=== PATIENT | female | born 1960 | race Caucasian/White ===

== ENCOUNTER → 2019-12-30 | Outpatient (CLI) | payer OTHER ==
[~2019-12-30] MED LIST: ALPRAZOLAM1 MG PO; AMLODIPINE BESYL5 MG PO; BENTYL10 MG PO; COLACE100 MG PO; COLESTIPOL HCL1 GM PO; FLUOXETINE HCL20 M1 PO; LISINOPRIL2.5 MG PO; LISINOPRIL40 MG PO; METOPROLOL SUCC25 MG PO; PANTOPRAZOLE SO40 MG PO; PROBIOTIC & AC1 EACH; VITAMIN D; ZOLPIDEM TARTRA10 MG PO
--- NOTE | 2019-12-30 14:12 | Diagnostic Imaging Report ---
CT of the abdomen and pelvis with contrast TECHNIQUE: CT of the abdomen and pelvis WITH intravenous contrast and WITHOUT oral contrast. Dose modulation, iterative reconstruction, and/or weight-based adjustment of the mA/kV was utilized to reduce the radiation dose to as low as reasonably achievable. IV CONTRAST: 100 mL of Isovue-370 ORAL CONTRAST: None RADIATION DOSE: Total DLP: 424 mGy*cm COMPLICATIONS: None INDICATION: ^[id number] ^1300 ^GEN ABD PAIN. COMPARISON: 12/30/2014. FINDINGS: LOWER THORAX: Trace dependent atelectasis is noted at the left lung base. Partially visualized breast implants are noted. HEPATOBILIARY: No focal hepatic lesions. Gallbladder is unremarkable. No biliary ductal dilatation. SPLEEN: No splenomegaly. PANCREAS: No focal masses or ductal dilatation. ADRENALS: No adrenal nodules. KIDNEYS/URETERS: No hydronephrosis, stones, or masses. PELVIC ORGANS/BLADDER: Unremarkable. PERITONEUM/RETROPERITONEUM: No free air or fluid. LYMPH NODES: No lymphadenopathy. VESSELS: Negative for abdominal aortic aneurysm. Moderate multifocal infrarenal calcified atherosclerotic changes are noted. GI TRACT: Limited due to lack of oral contrast. Stomach is mildly distended. Small hiatal hernia is noted. There is mild hyperenhancement and wall thickening of the terminal ileum and cecum and proximal colon with intraluminal fluid. No adjacent fluid collection or significant inflammatory changes are identified. Normal appendix is noted. Negative for bowel obstruction. Descending colon is decompressed limiting evaluation. BONES AND SOFT TISSUES: Mild to moderate multilevel degenerative changes of the spine are noted. No suspicious lytic or blastic lesions are identified. Soft tissues are unremarkable.. IMPRESSION: Negative for bowel obstruction. There is mild wall thickening, hyperenhancement and intraluminal fluid at the level of the terminal ileum and cecum suggestive of infectious or inflammatory change. No drainable adjacent fluid collection is noted. Similar acute findings were noted on the CT scan dated 12/30/2014. Signed by: Justyn Mack MD on 12/30/2019 2:09 PM
== END ==
LOC: CT 09:28
PROVIDERS: ATTEND Internal Medicine Gastroenterology
DX: R10.84 Generalized abdominal pain (principal)
CPT/HCPCS: 74177

== ENCOUNTER → 2020-01-03 | Day surgery (SDC) | payer OTHER ==
[2019-12-30 12:48] LABS: CREATININE, SERUM 1.09 mg/dL (0.57-1.11)
[~2020-01-03] MED LIST changes: +FENTANYL CITRATE/PF 100MCG/2 ML INJ ONE; +GLUCAGON FOR INJ 1 MG VIAL ONE; +HYOSCYAMINE 0.125 MG TAB ONE; +KETAMINE HCL INJ 50 MG/ML 10 ML VIAL ONE; +LIDOCAINE HCL 2% LOCAL INJ 5 ML SDV VIAL INJ ONE; +MIDAZOLAM HCL 2 MG/2 ML VIAL ONE; +PHENYLEPHRINE HCL 1% 10 MG/ML VIAL ONE; +PROPOFOL IV EMULSION 10 MG/ML 20 ML VIAL ONE
[2020-01-03 15:15] VITALS: BP 102/55
[2020-01-03 15:59] LABS: WBC,FECAL (FECAL LACTOFERRIN) NEGATIVE (NEGATIVE)
--- NOTE | 2020-01-03 16:13 | Operative Report ---
DATE OF PROCEDURE: 01/03/2020 SURGEON: Chidi Valencia MD PROCEDURES: EGD with biopsies and colonoscopy with polypectomy and biopsies. INDICATIONS FOR EGD: Dyspepsia. INDICATIONS FOR COLONOSCOPY: Surveillance colonoscopy, personal history of colon polyps, diarrhea. MEDICATIONS: The patient was done under MAC, please see anesthesiologist's note. PROCEDURE IN DETAIL: With the patient in the left lateral decubitus position, a flexible fiberoptic Olympus gastroscope was introduced into the esophagus under direct visualization without any difficulty. There was some patchy erythema noted in distal esophagus. The scope was then advanced with ease into the stomach. Mucosa overlying the antrum and the body revealed some patchy erythema and [id number] edema, and biopsies were obtained and sent to stain for H. pylori. Pylorus was of normal contour and shape, was intubated with ease and the scope was advanced all the way to the second portion of the duodenum. The scope was then withdrawn slowly and biopsies were obtained from the proximal second portion and duodenal bulb. The scope was then withdrawn back into the stomach and retroflexed, mucosa overlying the fundus and the cardia appeared to be within normal limits. The scope was then straightened out, it was subsequently withdrawn, and the patient tolerated the procedure well. IMPRESSION: 1. Mild distal esophagitis. 2. Gastritis, biopsied, biopsies sent to stain for Helicobacter pylori. 3. Rule out sprue. PLAN: Follow up histology. Increase Protonix to 40 mg one p.o. before meals b.i.d. The patient was then turned around and after adequate lubrication of the anal canal, a flexible fiberoptic Olympus colonoscope was inserted into the rectum with ease and advanced all the way to the cecum. The ileocecal valve was intubated and the scope was advanced into the terminal ileum. Biopsies were obtained. The scope was then withdrawn back into the colon. It was then withdrawn slowly. Mucosa overlying the ascending colon and transverse colon grossly appeared to be within normal limits. Random biopsies were obtained from the left colon to rule out microscopic colitis. Two polyps were hot biopsied from the sigmoid colon. One polyp was hot biopsied from the rectum. Biopsies were also obtained from the rectum. The scope was then retroflexed into the distal rectum and small internal hemorrhoids were noted, none of which was actively bleeding. The scope was then straightened out and it was subsequently withdrawn after securing an adequate stool specimen that was sent for the appropriate stool studies. The patient tolerated the procedure well. IMPRESSION: 1. Rule out microscopic colitis. 2. Sigmoid colon polyp x2, hot biopsied. 3. Rectal polyp x1, hot biopsied. 4. Proctitis, mild. 5. Internal hemorrhoids, none actively bleeding. PLAN: Follow up histology. Initiate Bentyl 20 mg one p.o. t.i.d. and start Flagyl 500 mg one p.o. q.6 hours x14 days for possible giardiasis. The patient might benefit from a followup colonoscopy in 3 years. Chidi Valencia MD [facility] [place] /[id number] cc: Boogie Guthrie MD
[2020-01-04 16:21] LABS: C DIFFICILE TOXIN A&B AMP PROB NEGATIVE (NEGATIVE)
[2020-01-06 06:11] LABS: ENDOMYSIAL ANTIBODIES, IGA Negative (Negative)
== END | disposition home or self-care (01) ==
LOC: OR 10:29
PROVIDERS: ATTEND Internal Medicine Gastroenterology
DX: K51.919 Ulcerative colitis, unspecified with unspecified complications (principal); K63.5 Polyp of colon; K62.1 Rectal polyp; K29.70 Gastritis, unspecified, without bleeding; K20.90 Esophagitis, unspecified without bleeding; K44.9 Diaphragmatic hernia without obstruction or gangrene; K21.9 Gastro-esophageal reflux disease without esophagitis; K62.89 Other specified diseases of anus and rectum; K64.8 Other hemorrhoids; G47.33 Obstructive sleep apnea (adult) (pediatric); I10 Essential (primary) hypertension; F41.9 Anxiety disorder, unspecified; F32.9 Major depressive disorder, single episode, unspecified; F17.210 Nicotine dependence, cigarettes, uncomplicated; Z88.6 Allergy status to analgesic agent; Z01.810 Encounter for preprocedural cardiovascular examination; Z01.812 Encounter for preprocedural laboratory examination; Z11.59 Encounter for screening for other viral diseases; Z68.28 Body mass index [BMI] 28.0-28.9, adult; Z80.0 Family history of malignant neoplasm of digestive organs; Z83.79 Family history of other diseases of the digestive system
CPT/HCPCS: 36415; 43239; 45380; 45384; 82565; 82784; 83516; 83630; 83993; 84520; 86256; 87045; 87177; 87328; 87493; 93005; J1610; J2001; J2250; J2370; J2704; J3010; U0002; 45378

== ENCOUNTER → 2020-10-27 | Outpatient (CLI) | payer BC ==
[~2020-10-27] MED LIST changes: -FENTANYL CITRATE/PF 100MCG/2 ML INJ ONE; -GLUCAGON FOR INJ 1 MG VIAL ONE; -HYOSCYAMINE 0.125 MG TAB ONE; -KETAMINE HCL INJ 50 MG/ML 10 ML VIAL ONE; -LIDOCAINE HCL 2% LOCAL INJ 5 ML SDV VIAL INJ ONE; -MIDAZOLAM HCL 2 MG/2 ML VIAL ONE; -PHENYLEPHRINE HCL 1% 10 MG/ML VIAL ONE; -PROPOFOL IV EMULSION 10 MG/ML 20 ML VIAL ONE
== END ==
LOC: US 09:25
PROVIDERS: ATTEND Internal Medicine Gastroenterology
DX: R10.84 Generalized abdominal pain (principal); R14.0 Abdominal distension (gaseous)
CPT/HCPCS: 76700; 76856

== ENCOUNTER → 2020-11-10 | Day surgery (SDC) | payer BC ==
[2020-11-08 15:03] LABS: BASOPHILS # (AUTO) 0.1 (0.0-0.1); BASOPHILS % 0.8 % (0.0-1.0); EOSINOPHILS # (AUTO) 0.1 (0.0-0.4); EOSINOPHILS % 1.4 % (0.0-6.0); HEMATOCRIT 38.2 % (34.2-44.1); HEMOGLOBIN 12.2 g/dL (12.0-16.0); LYMPHOCYTES % 23.4 % (18.0-39.1); MEAN CORPUSCULAR HEMOGLOBIN 28.9 pg (28-32); MEAN CORPUSCULAR HGB CONC 31.9 g/dL (31-35); MEAN CORPUSCULAR VOLUME 90.5 fL (81-99); MONOCYTES # (AUTO) 0.7 (0.2-0.8); MONOCYTES % 7.7 % (4.4-11.3); NEUTROPHILS # (AUTO) 5.6 (2.1-6.9); NEUTROPHILS % 66.1 % (38.7-80.0); PLATELET COUNT 151 x10e3/uL (140-360); RED BLOOD COUNT 4.22 x10e6/uL (3.6-5.1); RED CELL DISTRIBUTION WIDTH 13.9 % (11.7-14.4)
[~2020-11-10] MED LIST changes: +ATORVASTATIN CA20 MG PO; +LIDOCAINE HCL 2% LOCAL INJ 5 ML SDV VIAL INJ ONE; +METOCLOPRAMIDE HCL 10 MG/2ML VIAL ONE; -PROBIOTIC & AC1 EACH; +PROBIOTIC & AC1 EACH PO; +PROPOFOL IV EMULSION 10 MG/ML 20 ML VIAL ONE; -VITAMIN D; +VITAMIN D PO; +ZOFRAN4 MG PO
[2020-11-10 08:30] VITALS: BP 129/63
[2020-11-15 06:12] LABS: ENDOMYSIAL ANTIBODIES, IGA Negative (Negative)
== END | disposition home or self-care (01) ==
LOC: OR 05:44
PROVIDERS: ATTEND Internal Medicine Gastroenterology
DX: K29.70 Gastritis, unspecified, without bleeding (principal); K20.90 Esophagitis, unspecified without bleeding; K21.9 Gastro-esophageal reflux disease without esophagitis; Z86.010 Personal history of colon polyps; J44.9 Chronic obstructive pulmonary disease, unspecified; G47.33 Obstructive sleep apnea (adult) (pediatric); I10 Essential (primary) hypertension; F41.9 Anxiety disorder, unspecified; F32.9 Major depressive disorder, single episode, unspecified; Z88.8 Allergy status to other drugs, medicaments and biological substances; Z01.810 Encounter for preprocedural cardiovascular examination; Z01.812 Encounter for preprocedural laboratory examination; Z20.822 Contact with and (suspected) exposure to COVID-19; Z87.891 Personal history of nicotine dependence; Z80.0 Family history of malignant neoplasm of digestive organs
CPT/HCPCS: 36415; 43239; 82784; 83516; 85025; 86256; 93005; C9113; J2001; J2704; J2765; U0002

== ENCOUNTER → 2022-08-08 | Outpatient (CLI) | payer OTHER ==
[~2022-08-08] MED LIST changes: -LIDOCAINE HCL 2% LOCAL INJ 5 ML SDV VIAL INJ ONE; -METOCLOPRAMIDE HCL 10 MG/2ML VIAL ONE; -PROPOFOL IV EMULSION 10 MG/ML 20 ML VIAL ONE
== END ==
LOC: RAD 10:35
PROVIDERS: ATTEND Nurse Practitioner Family
DX: I10 Essential (primary) hypertension (principal)
CPT/HCPCS: 93306